=== PATIENT | female | born 1955 | race Caucasian/White ===

== ENCOUNTER 2017-04-21 15:06 | Day surgery (SDC) | payer OTHER ==
[~2017-04-21] VITALS: Ht 167.6 cm; Wt 63.0 kg
[~2017-04-21 15:06] MED LIST: APRESOLINE50 MG PO; HUMALOG100 UNIT/1 SC; LANTUS 10100 UNITS/ SC; LEVOXYL137 MCG PO; LIPITOR10 MG PO; NABI650T PO; NICODERM CQ1 EACH TD; NORMODYNE,TRAN200 MG PO; TUMS500 MG PO; ULTRAM50 MG PO
[2017-04-21 15:31] LABS: HEMATOCRIT 33.9 % (36.0-46.0); MCH 34.2 PG (29.0-34.0); MCHC 34.5 G/DL (30.0-36.0); MCV 99.1 FL (83-99); MEAN PLAT.VOLUME 9.2 uM^3 (9.5-12.4); PLATELET COUNT 193 K/uL (156-360); RBC DIS.WIDTH-CV 12.7 % (11.8-14.6); RBC DIS.WIDTH-SD 45.7 % (39-53); RED BLOOD COUNT 3.42 M/uL (3.80-5.20)
[2017-04-21 15:42] LABS: ANION GAP 10 MEQ/L (2-14); CHLORIDE 96 MEQ/L (99-109); POTASSIUM 5.5 MEQ/L (3.7-5.4); SAMPLE HEMOLYSIS CHECK 0; SAMPLE ICTERIC CHECK 0; SAMPLE LIPEMIA CHECK 0; SODIUM 132 MEQ/L (136-147)
[2017-04-21 15:46] VITALS: BP 219/86
[2017-04-21 15:47] LABS: GFR ESTIMATE (CALCULATED) 7 mL/min/; GLUCOSE 226 mg/dL (70-99); UREA NITROGEN (BUN) 58 mg/dL (9-23)
[2017-04-21] MEDS ORDERED: NICODERM CQ1 EAC1 TD (16:14)
[2017-04-21 16:46] LABS: METH RESISTANT S AUREUS PCR NEGATIVE (NEGATIVE); PROBE CHECK PASS; SPECIMEN PROCESSING CONTROL PASS
[2017-04-21 21:26] LABS: POINT-OF-CARE METER ID UU13113675
[2017-04-21 22:05] VITALS: BP 176/91
[2017-04-21 22:45] VITALS: BP 168/86
== END 2017-04-21 22:50 | disposition home or self-care (01) ==
LOC: SDC 15:06
PROVIDERS: Surgery
DX: T82.41XA Breakdown (mechanical) of vascular dialysis catheter, initial encounter (principal)
CPT/HCPCS: 80048; 82948; 85027; 87641; C1751; C1788; J0690; J1644; J3010

== ENCOUNTER 2017-05-14 07:04 | Day surgery (SDC) | payer OTHER ==
[~2017-05-14] VITALS: Ht 167.6 cm; Wt 63.0 kg
[~2017-05-14 07:04] MED LIST changes: +NICODERM CQ1 EAC1 TD
[2017-05-14 07:44] LABS: HEMATOCRIT 29.5 % (36.0-46.0); MCHC 34.2 G/DL (30.0-36.0); MCV 96.4 FL (83-99); MEAN PLAT.VOLUME 9.2 uM^3 (9.5-12.4); PLATELET COUNT 196 K/uL (156-360); RBC DIS.WIDTH-SD 42.7 % (39-53); RED BLOOD COUNT 3.06 M/uL (3.80-5.20); WHITE BLOOD COUNT 6.1 K/uL (4.1-10.2)
[2017-05-14 07:50] LABS: POINT-OF-CARE METER ID UU14174212
[2017-05-14 08:04] VITALS: BP 195/84
[2017-05-14 08:08] LABS: ANION GAP 14 MEQ/L (2-14); CHLORIDE 97 MEQ/L (99-109); GFR ESTIMATE (CALCULATED) 7 mL/min/; GLUCOSE 239 mg/dL (70-99); POTASSIUM 3.9 MEQ/L (3.7-5.4); SAMPLE HEMOLYSIS CHECK 0; SAMPLE ICTERIC CHECK 0; SAMPLE LIPEMIA CHECK 0; SODIUM 134 MEQ/L (136-147); UREA NITROGEN (BUN) 53 mg/dL (9-23)
[2017-05-14 08:37] LABS: POINT-OF-CARE METER ID UU14174212
[2017-05-14 08:49] LABS: METH RESISTANT S AUREUS PCR NEGATIVE (NEGATIVE); PROBE CHECK PASS; SPECIMEN PROCESSING CONTROL PASS
[2017-05-14 09:34] LABS: POINT-OF-CARE METER ID UU13113655; POINT-OF-CARE USER ID ENVKLS06
[2017-05-14 10:08] LABS: POINT-OF-CARE METER ID UU13113675
[2017-05-14] MEDS ORDERED: NORCO 5/3251 TABLET PO (10:15)
[2017-05-14 11:45] VITALS: BP 170/77
[2017-05-14 12:45] VITALS: BP 165/72
[2017-05-14 13:58] VITALS: BP 156/70
[2017-05-14 14:08] LABS: POINT-OF-CARE METER ID UU14174212
== END 2017-05-14 14:15 | disposition home or self-care (01) ==
LOC: SDC 07:04
PROVIDERS: Surgery
PROC: 0WHG43Z Insertion of Infusion Device into Peritoneal Cavity, Percutaneous Endoscopic Approach (ICD-10-PCS; principal; 2017-05-14)
DX: I12.0 Hypertensive chronic kidney disease with stage 5 chronic kidney disease or end stage renal disease (principal); E11.22 Type 2 diabetes mellitus with diabetic chronic kidney disease; N18.6 End stage renal disease; Z99.2 Dependence on renal dialysis; E11.21 Type 2 diabetes mellitus with diabetic nephropathy; E03.9 Hypothyroidism, unspecified; Z79.4 Long term (current) use of insulin; F17.210 Nicotine dependence, cigarettes, uncomplicated
CPT/HCPCS: 80048; 82948; 85027; 87641; C1750; J0360; J0690; J1170; J2250; J2405; J2710; J3010; J7040; S0020